=== PATIENT | male | born 1940 | race Caucasian/White ===

== ENCOUNTER 2017-01-24 11:48 | Day surgery (SDC) | payer MEDICARE ==
[2017-01-22 15:14] LABS: HEMOGLOBIN 14.6 g/dL (13.7-18.0)
[2017-01-22 15:26] LABS: BLOOD UREA NITROGEN 13 mg/dL (7-18)
[~2017-01-24] VITALS: Ht 180.3 cm; Wt 80.0 kg
[~2017-01-24 11:48] MED LIST: AMLODIPINE; ATOR80TA75 PO; CLOPIDOGREL; DOCU-30 PO; LEVO112T4 PO; LISINOPRIL PO; TAMSULOSIN
[2017-01-24] MEDS ORDERED: D5%-0.45% NACL 1,000 ML IV SCH (12:30)
[2017-01-24 12:32] VITALS: BP 150/77
[2017-01-24] MEDS ORDERED: LISI-170 PO (12:39)
[2017-01-24] MEDS ORDERED: SULF1TAB24 PO (12:39)
[2017-01-24] MEDS ORDERED: CLOP75TA PO (12:39)
[2017-01-24] MEDS ORDERED: TAMS0.4C2 PO (12:39)
[2017-01-24] MEDS ORDERED: AMLO5TAB2 PO (12:39)
[2017-01-24] MEDS ORDERED: SODIUM BICARBONATE 8.4% 154 MEQ in DEXTROSE 5% 846 ML IV SCH (13:30)
[2017-01-24] MEDS ORDERED: MIDAZOLAM 1 MG/ML, 5ML ONE (13:44)
[2017-01-24] MEDS ORDERED: FENTANYL PF 100 MCG/2ML ONE (13:44)
[2017-01-24] MEDS ORDERED: PROTAMINE SULFATE 10 MG/ML, 25ML ONE (13:44)
[2017-01-24] MEDS ORDERED: NALOXONE 1 MG/ML, 2ML ONE (13:45)
[2017-01-24] MEDS ORDERED: HEPARIN 1,000 UNITS/ML, 10ML ONE (13:45)
[2017-01-24] MEDS ORDERED: LIDOCAINE 2%, 20ML ONE (13:56)
[2017-01-24] MEDS ORDERED: hydrALAzine 20 MG/ML, 1ML ONE (14:29)
[2017-01-24] MEDS ORDERED: VISIPAQUE 270 MG/ML, 150ML BOTTLE ONE (15:56)
[2017-01-24] MEDS ORDERED: VISIPAQUE 270 MG/ML, 50ML BOTTLE ONE (15:56)
[2017-01-24] MEDS ORDERED: CLOPIDOGREL 75 MG TABLET ONE (16:42)
[2017-01-24] MEDS ORDERED: CLOPIDOGREL 75 MG TABLET PO ONE (17:00)
== END 2017-01-24 19:55 | disposition home or self-care (01) ==
LOC: OUT 11:48
PROVIDERS: ATTEND Surgery Vascular Surgery
DX: I70.223 Atherosclerosis of native arteries of extremities with rest pain, bilateral legs (principal); I11.9 Hypertensive heart disease without heart failure; E78.5 Hyperlipidemia, unspecified; Z85.850 Personal history of malignant neoplasm of thyroid; E89.0 Postprocedural hypothyroidism; Z98.52 Vasectomy status; Z80.0 Family history of malignant neoplasm of digestive organs
CPT/HCPCS: 36415; 37225; 75625; 75716; 80048; 85025; C1714; C1725; C1751; C1760; C1769; C1884; C1894; C2623; J0360; J1644; J2250; J2310; J2720; J3010; J3490; Q9966; 75630; 76937; 99156; 99157

== ENCOUNTER 2017-06-04 07:07 | Inpatient (IN) | payer MEDICARE ==
[2017-06-03 13:18] LABS: HEMATOCRIT 44.8 % (39.2-51.8); HEMOGLOBIN 14.7 g/dL (13.7-18.0); WHITE BLOOD COUNT 7.6 x10^3/uL (3.4-10)
[2017-06-03 13:38] LABS: ASPARTATE AMINO TRANSFERASE 31 U/L (15-37); BLOOD UREA NITROGEN 14 mg/dL (7-18)
[~2017-06-04] VITALS: Ht 180.3 cm; Wt 98.2 kg
[~2017-06-04 07:07] MED LIST changes: +AMLO5TAB2 PO; +ASPI-496 PO; +ATOR-2 PO; -ATOR80TA75 PO; +CLOP75TA PO; +DOCU-131 PO; -DOCU-30 PO; +LISI-170 PO; +SULF1TAB24 PO; +TAMS0.4C2 PO
[2017-06-04] MEDS ORDERED: LACTATED RINGERS 1,000 ML IV SCH (08:01)
[2017-06-04 08:03] VITALS: BP 132/67
[2017-06-04] MEDS ORDERED: MAGNESIUM CITRATE 300ML ORAL SOL PO ONE (09:00)
[2017-06-04] MEDS: D5%-0.45% NACL 1,000 ML IV SCH (11:30)
[2017-06-04] MEDS ORDERED: ONDANSETRON 2MG/ML, 2ML IV PRN (11:30)
[2017-06-04] MEDS ORDERED: ZOLPIDEM 5MG TABLET PO PRN (11:30)
[2017-06-04 14:30] VITALS: BP 145/69
[2017-06-04 19:37] VITALS: BP 143/73
[2017-06-04] MEDS: SODIUM CHLORIDE FLUSH 3ML SYRINGE IVF SCH (20:02)
[2017-06-04] MEDS ORDERED: ERYTHROMYCIN BASE 250 MG TABLET PO SCH (21:00)
[2017-06-04] MEDS ORDERED: metroNIDAZOLE 500 MG TABLET PO SCH (21:00)
[2017-06-05] MEDS: D5%-0.45% NACL 1,000 ML IV SCH ×3 (00:04→16:00)
[2017-06-05 01:33] VITALS: BP 148/74
[2017-06-05] MEDS: LISINOPRIL 20 MG TABLET PO SCH (06:28)
[2017-06-05] MEDS: LEVOTHYROXINE 112 MCG TABLET PO SCH (06:28)
[2017-06-05] MEDS: ATENOLOL 25 MG TABLET PO SCH (06:28)
[2017-06-05 06:29] VITALS: BP 147/82
[2017-06-05] MEDS ORDERED: FENTANYL PF 250 MCG/5ML ONE ×2 (07:37→10:56)
[2017-06-05] MEDS ORDERED: MIDAZOLAM 1 MG/ML, 2ML ONE (07:37)
[2017-06-05] MEDS ORDERED: BUPIVACAINE/PF-EPI 0.5% 1:200K ONE (08:07)
[2017-06-05] MEDS ORDERED: SUCCINYLCHOLINE 20 MG/ML, 10ML ONE (08:21)
[2017-06-05] MEDS ORDERED: PROPOFOL 10 MG/ML, 20ML ONE (08:21)
[2017-06-05] MEDS ORDERED: DEXAMETHASONE 4 MG/ML, 1ML ONE (08:21)
[2017-06-05] MEDS ORDERED: ROCURONIUM 10 MG/ML ONE (08:21)
[2017-06-05] MEDS ORDERED: CEFOTETAN 2 GM ONE (08:21)
[2017-06-05] MEDS ORDERED: ONDANSETRON 2MG/ML, 2ML ONE (08:21)
[2017-06-05] MEDS: TAMSULOSIN 0.4 MG CAP.ER.24H PO SCH (09:00)
[2017-06-05] MEDS: SODIUM CHLORIDE FLUSH 3ML SYRINGE IVF SCH ×2 (09:00→20:19)
[2017-06-05] MEDS ORDERED: ONDANSETRON 2MG/ML, 2ML IVPush PRN (12:30)
[2017-06-05] MEDS ORDERED: OXYcodone 5 MG/5 ML ORAL.SOL UDC PO PRN (12:30)
[2017-06-05] MEDS ORDERED: FENTANYL PF 100 MCG/2ML ONE (12:58)
[2017-06-05] MEDS ORDERED: HYDROmorphone 1 MG/ML, 1ML ONE (12:58)
[2017-06-05] MEDS: HYDROmorphone 1 MG/ML, 1ML IV PRN ×6 (12:59→13:50)
[2017-06-05] MEDS: FENTANYL PF 100 MCG/2ML IV PRN ×2 (13:02→13:10)
[2017-06-05] MEDS ORDERED: HYDROmorphone 2 MG/ML, 1ML ONE (13:08)
[2017-06-05] MEDS ORDERED: MEPERIDINE/PF 25MG/0.5ML ONE (13:28)
[2017-06-05] MEDS: MEPERIDINE/PF 25MG/0.5ML IVPush PRN ×2 (13:36→13:45)
[2017-06-05] MEDS ORDERED: ACETAMINOPHEN 325 MG TABLET PO PRN (16:00)
[2017-06-05] MEDS ORDERED: KETOROLAC 30 MG/1 ML IV PRN (16:00)
[2017-06-05] MEDS ORDERED: OXYcodone/APAP 5/325MG TABLET PO PRN (16:00)
[2017-06-05] MEDS ORDERED: ACETAMINOPHEN 650 MG SUPP PR PRN (16:00)
[2017-06-05] MEDS ORDERED: morphine SULFATE 10 MG/ML, 1ML IV PRN (16:00)
[2017-06-05] MEDS ORDERED: LORazepam 2 MG/ML, 1ML IV PRN (16:30)
[2017-06-05] MEDS ORDERED: LORazepam 1MG TABLET PO PRN (16:30)
[2017-06-05 16:35] VITALS: BP 129/73
[2017-06-05] MEDS: POTASSIUM CHLORIDE 20 MEQ in LACTATED RINGERS 1,000 ML IV SCH (18:20)
[2017-06-05 19:01] VITALS: BP 130/74
[2017-06-05] MEDS: HEPARIN 5,000 UNITS/ML, 1ML SQ SCH (20:07)
[2017-06-05 23:22] VITALS: BP 143/70
[2017-06-06] MEDS: POTASSIUM CHLORIDE 20 MEQ in LACTATED RINGERS 1,000 ML IV SCH (02:26)
[2017-06-06 02:57] VITALS: BP 136/72
[2017-06-06] MEDS: HEPARIN 5,000 UNITS/ML, 1ML SQ SCH ×3 (04:53→19:41)
[2017-06-06] MEDS: LEVOTHYROXINE 112 MCG TABLET PO SCH (05:03)
[2017-06-06] MEDS: ATENOLOL 25 MG TABLET PO SCH (05:03)
[2017-06-06] MEDS ORDERED: D5%-0.45NACL+KCL 20MEQ 1,000 ML IV SCH (06:00)
[2017-06-06 07:06] VITALS: BP 116/72
[2017-06-06] MEDS: D5%-0.45% NACL 1,000 ML IV SCH ×3 (08:00→16:00)
[2017-06-06] MEDS: TAMSULOSIN 0.4 MG CAP.ER.24H PO SCH (08:54)
[2017-06-06] MEDS: LISINOPRIL 20 MG TABLET PO SCH (08:54)
[2017-06-06] MEDS: SODIUM CHLORIDE FLUSH 3ML SYRINGE IVF SCH ×2 (09:00→19:41)
[2017-06-06 11:03] LABS: HEMOGLOBIN 13.1 g/dL (13.7-18.0); WHITE BLOOD COUNT 13.2 x10^3/uL (3.4-10)
[2017-06-06 11:05] LABS: BLOOD UREA NITROGEN 16 mg/dL (7-18)
[2017-06-06 14:38] VITALS: BP 129/62
[2017-06-06 18:58] VITALS: BP 139/89
[2017-06-07 02:15] VITALS: BP 130/64
[2017-06-07] MEDS: D5%-0.45% NACL 1,000 ML IV SCH ×3 (02:20→16:00)
[2017-06-07] MEDS: HEPARIN 5,000 UNITS/ML, 1ML SQ SCH ×3 (04:52→20:48)
[2017-06-07 04:53] VITALS: BP 117/62
[2017-06-07] MEDS: ATENOLOL 25 MG TABLET PO SCH (04:58)
[2017-06-07] MEDS: LEVOTHYROXINE 112 MCG TABLET PO SCH (04:58)
[2017-06-07 06:56] VITALS: BP 111/66
[2017-06-07] MEDS: LISINOPRIL 20 MG TABLET PO SCH (08:04)
[2017-06-07] MEDS: TAMSULOSIN 0.4 MG CAP.ER.24H PO SCH (08:04)
[2017-06-07] MEDS: SODIUM CHLORIDE FLUSH 3ML SYRINGE IVF SCH ×2 (08:04→20:52)
[2017-06-07 09:16] LABS: HEMATOCRIT 35.7 % (39.2-51.8); HEMOGLOBIN 11.8 g/dL (13.7-18.0); WHITE BLOOD COUNT 11.6 x10^3/uL (3.4-10)
[2017-06-07 09:27] LABS: BLOOD UREA NITROGEN 17 mg/dL (7-18)
[2017-06-07] MEDS: OXYcodone/APAP 7.5/325MG TABLET PO PRN ×3 (12:41→20:48)
[2017-06-07] MEDS: CEFOTETAN PMX 1GM/50ML 50 ML IV SCH (12:41)
[2017-06-07 13:36] VITALS: BP 112/61
[2017-06-07 19:05] VITALS: BP 126/76
[2017-06-08 00:06] VITALS: BP 106/59
[2017-06-08] MEDS: CEFOTETAN PMX 1GM/50ML 50 ML IV SCH ×2 (00:11→12:30)
[2017-06-08] MEDS: D5%-0.45% NACL 1,000 ML IV SCH ×3 (00:12→17:51)
[2017-06-08] MEDS: HEPARIN 5,000 UNITS/ML, 1ML SQ SCH ×3 (04:55→23:11)
[2017-06-08 04:59] VITALS: BP 126/65
[2017-06-08] MEDS: ATENOLOL 25 MG TABLET PO SCH (05:01)
[2017-06-08] MEDS: LEVOTHYROXINE 112 MCG TABLET PO SCH (05:01)
[2017-06-08] MEDS: OXYcodone/APAP 7.5/325MG TABLET PO PRN ×2 (05:54→13:57)
[2017-06-08 06:47] VITALS: BP 121/58
[2017-06-08] MEDS: TAMSULOSIN 0.4 MG CAP.ER.24H PO SCH (08:11)
[2017-06-08] MEDS: LISINOPRIL 20 MG TABLET PO SCH (08:11)
[2017-06-08] MEDS: SODIUM CHLORIDE FLUSH 3ML SYRINGE IVF SCH ×2 (08:12→20:24)
[2017-06-08 09:26] LABS: HEMATOCRIT 37.5 % (39.2-51.8); HEMOGLOBIN 12.5 g/dL (13.7-18.0); WHITE BLOOD COUNT 13.2 x10^3/uL (3.4-10)
[2017-06-08 09:35] LABS: BLOOD UREA NITROGEN 12 mg/dL (7-18)
[2017-06-08 12:43] VITALS: BP 108/63
[2017-06-08] MEDS: PIPERACILLIN/TAZO/PMX 3.375GM 50 ML IV SCH ×2 (14:00→20:22)
[2017-06-08 19:00] VITALS: BP 114/63
[2017-06-09 00:36] VITALS: BP 123/69
[2017-06-09] MEDS: D5%-0.45% NACL 1,000 ML IV SCH ×3 (02:18→15:09)
[2017-06-09] MEDS: PIPERACILLIN/TAZO/PMX 3.375GM 50 ML IV SCH ×4 (02:18→20:36)
[2017-06-09] MEDS: HEPARIN 5,000 UNITS/ML, 1ML SQ SCH ×3 (07:00→23:36)
[2017-06-09] MEDS: SODIUM CHLORIDE FLUSH 3ML SYRINGE IVF SCH ×2 (09:00→21:07)
[2017-06-09 09:28] VITALS: BP 108/52
[2017-06-09] MEDS: LEVOTHYROXINE 112 MCG TABLET PO SCH (09:30)
[2017-06-09] MEDS: LISINOPRIL 20 MG TABLET PO SCH (09:30)
[2017-06-09] MEDS: ATENOLOL 25 MG TABLET PO SCH (09:30)
[2017-06-09] MEDS: TAMSULOSIN 0.4 MG CAP.ER.24H PO SCH (09:30)
[2017-06-09] MEDS ORDERED: DOCUSATE 100 MG CAPSULE PO PRN ×2 (13:00→16:00)
[2017-06-09] MEDS ORDERED: BISACODYL 10 MG SUPP PR PRN (13:00)
[2017-06-09 13:28] VITALS: BP 130/70
[2017-06-09] MEDS ORDERED: ACETAMINOPHEN 650 MG SUPP PR PRN (16:00)
[2017-06-09] MEDS ORDERED: ACETAMINOPHEN 325 MG TABLET PO PRN (16:00)
[2017-06-09] MEDS ORDERED: ZOLPIDEM 5MG TABLET PO PRN (16:00)
[2017-06-09] MEDS ORDERED: ONDANSETRON 2MG/ML, 2ML IV PRN (16:00)
[2017-06-09] MEDS ORDERED: LORazepam 2 MG/ML, 1ML IV PRN (16:00)
[2017-06-09] MEDS: OXYcodone/APAP 7.5/325MG TABLET PO PRN (18:33)
[2017-06-09 19:51] VITALS: BP 77/46
[2017-06-09] MEDS ORDERED: SODIUM CHLORIDE 0.9% 500 ML IV ONE (20:30)
[2017-06-10] VITALS (7 sets, daily range): BP systolic 92–129; BP diastolic 36–72
[2017-06-10] MEDS: PIPERACILLIN/TAZO/PMX 3.375GM 50 ML IV SCH ×2 (02:17→08:18)
[2017-06-10] MEDS: D5%-0.45% NACL 1,000 ML IV SCH ×2 (02:19→12:54)
[2017-06-10 05:29] LABS: HEMATOCRIT 26.4 % (39.2-51.8); HEMOGLOBIN 8.8 g/dL (13.7-18.0)
[2017-06-10] MEDS: LEVOTHYROXINE 112 MCG TABLET PO SCH (06:19)
[2017-06-10] MEDS: HEPARIN 5,000 UNITS/ML, 1ML SQ SCH (07:00)
[2017-06-10] MEDS ORDERED: SODIUM CHLORIDE 0.9%, 500ML IVBOLUS ONE (07:00)
[2017-06-10] MEDS: ATENOLOL 25 MG TABLET PO SCH (08:00)
[2017-06-10] MEDS: TAMSULOSIN 0.4 MG CAP.ER.24H PO SCH (08:17)
[2017-06-10] MEDS: SODIUM CHLORIDE FLUSH 3ML SYRINGE IVF SCH (09:00)
[2017-06-10] MEDS: LISINOPRIL 20 MG TABLET PO SCH (09:00)
[2017-06-10] MEDS ORDERED: OMNIPAQUE 350 MG/ML, 100ML BOTTLE ONE (09:09)
[2017-06-10] MEDS ORDERED: SODIUM CHLORIDE 0.9% 500 ML IV ONE (10:30)
[2017-06-10 11:25] LABS: HEMOGLOBIN 8.1 g/dL (13.7-18.0)
[2017-06-10] MEDS ORDERED: ALBUTEROL/IPRATROPIUM 2.5MG/0.5MG, 3 ML ONE (12:40)
[2017-06-10] MEDS: MEROPENEM 1 GM in SODIUM CHLORIDE 0.9% 100 ML IV SCH (12:53)
[2017-06-10] MEDS: LINEZOLID PMX 600MG/300ML 300 ML IV SCH (14:00)
[2017-06-10] MEDS ORDERED: LIDOCAINE 1%, 20ML ONE (14:57)
[2017-06-10] MEDS ORDERED: MIDAZOLAM 1 MG/ML, 5ML ONE (15:25)
[2017-06-10] MEDS ORDERED: NALOXONE 1 MG/ML, 2ML ONE (15:26)
[2017-06-10] MEDS ORDERED: FLUMAZENIL 0.1 MG/1 ML, 5ML ONE (15:26)
[2017-06-10] MEDS ORDERED: FENTANYL PF 100 MCG/2ML ONE (15:26)
[2017-06-10 17:35] LABS: HEMATOCRIT 24.2 % (39.2-51.8); HEMOGLOBIN 8.2 g/dL (13.7-18.0)
[2017-06-10] MEDS: ALBUTEROL/IPRATROPIUM 2.5MG/0.5MG, 3 ML NPPB SCH (20:05)
[2017-06-10 22:19] LABS: HEMATOCRIT 27.6 % (39.2-51.8); HEMOGLOBIN 9.2 g/dL (13.7-18.0)
[2017-06-11] VITALS (9 sets, daily range): BP systolic 114–153; BP diastolic 52–76
[2017-06-11] MEDS: MEROPENEM 1 GM in SODIUM CHLORIDE 0.9% 100 ML IV SCH ×3 (01:56→17:44)
[2017-06-11] MEDS: METOCLOPRAMIDE 5 MG/ML, 2ML IVPush SCH ×4 (01:57→20:51)
[2017-06-11] MEDS: D5%-0.45% NACL 1,000 ML IV SCH ×3 (01:57→11:30)
[2017-06-11] MEDS: SODIUM CHLORIDE FLUSH 3ML SYRINGE IVF SCH ×3 (01:57→21:29)
[2017-06-11] MEDS: LINEZOLID PMX 600MG/300ML 300 ML IV SCH ×2 (02:58→14:22)
[2017-06-11 04:43] LABS: HEMATOCRIT 23.2 % (39.2-51.8); HEMOGLOBIN 7.8 g/dL (13.7-18.0)
[2017-06-11] MEDS: LEVOTHYROXINE 112 MCG TABLET PO SCH (05:28)
[2017-06-11] MEDS: ALBUTEROL/IPRATROPIUM 2.5MG/0.5MG, 3 ML NPPB SCH ×4 (07:00→19:49)
[2017-06-11] MEDS: ATENOLOL 25 MG TABLET PO SCH (08:58)
[2017-06-11] MEDS: TAMSULOSIN 0.4 MG CAP.ER.24H PO SCH (08:58)
[2017-06-11] MEDS: LISINOPRIL 20 MG TABLET PO SCH (08:58)
[2017-06-11 09:58] LABS: HEMATOCRIT 23.2 % (39.2-51.8); HEMOGLOBIN 7.7 g/dL (13.7-18.0); WHITE BLOOD COUNT 13.1 x10^3/uL (3.4-10)
[2017-06-11 10:08] LABS: BLOOD UREA NITROGEN 14 mg/dL (7-18)
[2017-06-11 16:04] LABS: HEMOGLOBIN 8.2 g/dL (13.7-18.0)
[2017-06-11] MEDS: OXYcodone/APAP 7.5/325MG TABLET PO PRN ×2 (17:42→21:29)
[2017-06-12 00:46] VITALS: BP 145/77
[2017-06-12 01:07] LABS: HEMATOCRIT 30.3 % (39.2-51.8); HEMOGLOBIN 9.9 g/dL (13.7-18.0)
[2017-06-12] MEDS: LINEZOLID PMX 600MG/300ML 300 ML IV SCH ×2 (01:18→13:40)
[2017-06-12] MEDS: OXYcodone/APAP 7.5/325MG TABLET PO PRN ×3 (01:57→12:37)
[2017-06-12] MEDS: D5%-0.45% NACL 1,000 ML IV SCH (01:57)
[2017-06-12] MEDS: METOCLOPRAMIDE 5 MG/ML, 2ML IVPush SCH ×4 (03:52→23:30)
[2017-06-12] MEDS: MEROPENEM 1 GM in SODIUM CHLORIDE 0.9% 100 ML IV SCH ×3 (03:52→20:22)
[2017-06-12 05:00] LABS: HEMATOCRIT 31.6 % (39.2-51.8); HEMOGLOBIN 10.5 g/dL (13.7-18.0)
[2017-06-12 05:10] LABS: ASPARTATE AMINO TRANSFERASE 71 U/L (15-37); BLOOD UREA NITROGEN 12 mg/dL (7-18)
[2017-06-12] MEDS: ALBUTEROL/IPRATROPIUM 2.5MG/0.5MG, 3 ML NPPB SCH (07:00)
[2017-06-12 07:11] VITALS: BP 159/74
[2017-06-12] MEDS: LEVOTHYROXINE 112 MCG TABLET PO SCH (07:14)
[2017-06-12] MEDS: ATENOLOL 25 MG TABLET PO SCH (07:14)
[2017-06-12] MEDS: SODIUM CHLORIDE FLUSH 3ML SYRINGE IVF SCH ×2 (08:48→20:22)
[2017-06-12] MEDS: LISINOPRIL 20 MG TABLET PO SCH (08:50)
[2017-06-12] MEDS: TAMSULOSIN 0.4 MG CAP.ER.24H PO SCH (08:50)
[2017-06-12] MEDS ORDERED: ALBUTEROL/IPRATROPIUM 2.5MG/0.5MG, 3 ML NPPB PRN (09:00)
[2017-06-12 10:09] LABS: HEMATOCRIT 31.7 % (39.2-51.8); HEMOGLOBIN 10.6 g/dL (13.7-18.0); WHITE BLOOD COUNT 11.9 x10^3/uL (3.4-10)
[2017-06-12 10:21] LABS: BLOOD UREA NITROGEN 12 mg/dL (7-18)
[2017-06-12] MEDS: BISACODYL 10 MG SUPP PR PRN (10:58)
[2017-06-12] MEDS ORDERED: POTASSIUM CHLORIDE 40 MEQ in D5%-0.45% NACL 1,000 ML IV SCH (11:30)
[2017-06-12] MEDS ORDERED: ENOXAPARIN 30 MG/0.3 ML SQ SCH (12:00)
[2017-06-12 13:28] VITALS: BP 144/70
[2017-06-12 15:47] LABS: HEMATOCRIT 29.4 % (39.2-51.8); HEMOGLOBIN 9.9 g/dL (13.7-18.0)
[2017-06-12] MEDS: POTASSIUM CHLORIDE 40 MEQ in D5%-0.45% NACL 1,000 ML IV SCH (17:39)
[2017-06-12 19:54] VITALS: BP 166/79
[2017-06-12 22:39] LABS: HEMATOCRIT 31.1 % (39.2-51.8); HEMOGLOBIN 10.4 g/dL (13.7-18.0)
[2017-06-13 01:05] VITALS: BP 159/73
[2017-06-13] MEDS: LINEZOLID PMX 600MG/300ML 300 ML IV SCH ×2 (02:01→16:50)
[2017-06-13] MEDS: POTASSIUM CHLORIDE 40 MEQ in D5%-0.45% NACL 1,000 ML IV SCH (02:42)
[2017-06-13] MEDS: MEROPENEM 1 GM in SODIUM CHLORIDE 0.9% 100 ML IV SCH ×2 (04:15→22:18)
[2017-06-13 04:24] LABS: HEMATOCRIT 29.7 % (39.2-51.8); HEMOGLOBIN 9.9 g/dL (13.7-18.0)
[2017-06-13] MEDS: LEVOTHYROXINE 112 MCG TABLET PO SCH (05:14)
[2017-06-13] MEDS: ATENOLOL 25 MG TABLET PO SCH (05:14)
[2017-06-13] MEDS: BISACODYL 10 MG SUPP PR PRN (05:14)
[2017-06-13] MEDS: METOCLOPRAMIDE 5 MG/ML, 2ML IVPush SCH ×3 (05:33→18:29)
[2017-06-13 07:00] VITALS: BP 138/64
[2017-06-13] MEDS ORDERED: POTASSIUM PHOSPHATE 22 MEQ in SODIUM CHLORIDE 0.9% 500 ML IV ONE (08:30)
[2017-06-13] MEDS: SODIUM CHLORIDE FLUSH 3ML SYRINGE IVF SCH ×2 (09:14→21:00)
[2017-06-13] MEDS: TAMSULOSIN 0.4 MG CAP.ER.24H PO SCH (09:14)
[2017-06-13] MEDS: LISINOPRIL 20 MG TABLET PO SCH (09:14)
[2017-06-13 09:33] LABS: HEMATOCRIT 29.6 % (39.2-51.8); HEMOGLOBIN 9.8 g/dL (13.7-18.0); WHITE BLOOD COUNT 10.3 x10^3/uL (3.4-10)
[2017-06-13 09:45] LABS: BLOOD UREA NITROGEN 13 mg/dL (7-18)
[2017-06-13] MEDS: FLUCONAZOLE 400 MG/200 ML 200 ML IV SCH (10:25)
[2017-06-13] MEDS ORDERED: BUPIVACAINE/PF-EPI 0.5% 1:200K ONE (11:51)
[2017-06-13] MEDS ORDERED: FENTANYL PF 250 MCG/5ML ONE (11:53)
[2017-06-13] MEDS ORDERED: MIDAZOLAM 1 MG/ML, 2ML ONE (11:53)
[2017-06-13] MEDS ORDERED: NEOSTIGMINE 1 MG/ML, 10ML ONE (12:16)
[2017-06-13] MEDS ORDERED: GLYCOPYRROLATE 0.2MG/1ML ONE (12:16)
[2017-06-13] MEDS ORDERED: ROCURONIUM 10 MG/ML ONE (12:16)
[2017-06-13] MEDS ORDERED: PROPOFOL 10 MG/ML, 20ML ONE (12:16)
[2017-06-13] MEDS ORDERED: OXYcodone 5 MG/5 ML ORAL.SOL UDC PO PRN (12:30)
[2017-06-13] MEDS ORDERED: PROMETHAZINE 25 MG/ML, 1ML IV PRN (12:30)
[2017-06-13] MEDS ORDERED: LABETALOL 5MG/ML, 20ML IV PRN (12:30)
[2017-06-13] MEDS ORDERED: ONDANSETRON 2MG/ML, 2ML IVPush PRN (12:30)
[2017-06-13] MEDS ORDERED: METOCLOPRAMIDE 5 MG/ML, 2ML IV PRN (12:30)
[2017-06-13] MEDS ORDERED: MEPERIDINE/PF 25MG/0.5ML IVPush PRN (12:30)
[2017-06-13] MEDS ORDERED: hydrALAzine 20 MG/ML, 1ML IV PRN (12:30)
[2017-06-13] MEDS ORDERED: FENTANYL PF 100 MCG/2ML IV PRN (12:30)
[2017-06-13] MEDS ORDERED: HYDROmorphone 2 MG/ML, 1ML ONE (14:36)
[2017-06-13] MEDS ORDERED: FENTANYL PF 100 MCG/2ML ONE (14:36)
[2017-06-13] MEDS: HYDROmorphone 1 MG/ML, 1ML IV PRN ×5 (14:40→15:20)
[2017-06-13 16:20] VITALS: BP 138/68
[2017-06-13 16:41] LABS: HEMATOCRIT 34.6 % (39.2-51.8); HEMOGLOBIN 11.6 g/dL (13.7-18.0)
[2017-06-13] MEDS: LACTATED RINGERS 500 ML IV SCH ×2 (18:35→19:58)
[2017-06-13] MEDS: D5%-0.45NACL+KCL 40MEQ 1,000 ML IV SCH (21:00)
[2017-06-13 21:29] VITALS: BP 113/56
[2017-06-13 22:09] LABS: HEMATOCRIT 38.4 % (39.2-51.8); HEMOGLOBIN 12.4 g/dL (13.7-18.0)
[2017-06-14 00:30] VITALS: BP 108/59
[2017-06-14] MEDS: METOCLOPRAMIDE 5 MG/ML, 2ML IVPush SCH ×4 (00:39→18:37)
[2017-06-14] MEDS: D5%-0.45NACL+KCL 40MEQ 1,000 ML IV SCH ×3 (05:00→18:37)
[2017-06-14 05:15] LABS: HEMATOCRIT 34.4 % (39.2-51.8); HEMOGLOBIN 11.4 g/dL (13.7-18.0); WHITE BLOOD COUNT 15.3 x10^3/uL (3.4-10)
[2017-06-14 05:20] LABS: BLOOD UREA NITROGEN 23 mg/dL (7-18)
[2017-06-14] MEDS: LINEZOLID PMX 600MG/300ML 300 ML IV SCH ×2 (05:22→17:53)
[2017-06-14 05:24] LABS: ASPARTATE AMINO TRANSFERASE 99 U/L (15-37)
[2017-06-14] MEDS: ATENOLOL 25 MG TABLET PO SCH (05:58)
[2017-06-14] MEDS: LEVOTHYROXINE 112 MCG TABLET PO SCH (05:58)
[2017-06-14] MEDS: MEROPENEM 1 GM in SODIUM CHLORIDE 0.9% 100 ML IV SCH ×3 (07:34→22:23)
[2017-06-14] MEDS: OXYcodone/APAP 7.5/325MG TABLET PO PRN (07:34)
[2017-06-14] MEDS: SODIUM CHLORIDE FLUSH 3ML SYRINGE IVF SCH ×2 (07:35→21:00)
[2017-06-14 07:40] VITALS: BP 136/76
[2017-06-14 09:33] LABS: HEMATOCRIT 33.4 % (39.2-51.8); HEMOGLOBIN 11.1 g/dL (13.7-18.0); WHITE BLOOD COUNT 14.8 x10^3/uL (3.4-10)
[2017-06-14 09:45] LABS: BLOOD UREA NITROGEN 25 mg/dL (7-18)
[2017-06-14] MEDS: FLUCONAZOLE 400 MG/200 ML 200 ML IV SCH (10:44)
[2017-06-14] MEDS: LISINOPRIL 20 MG TABLET PO SCH (10:44)
[2017-06-14] MEDS: TAMSULOSIN 0.4 MG CAP.ER.24H PO SCH (10:44)
[2017-06-14] MEDS ORDERED: POTASSIUM PHOSPHATE 22 MEQ in SODIUM CHLORIDE 0.9% 500 ML IV ONE (12:00)
[2017-06-14 13:10] VITALS: BP 132/66
[2017-06-14 16:31] LABS: HEMATOCRIT 31.8 % (39.2-51.8); HEMOGLOBIN 10.7 g/dL (13.7-18.0)
[2017-06-14 19:54] VITALS: BP 144/76
[2017-06-14 22:49] LABS: HEMATOCRIT 30.6 % (39.2-51.8); HEMOGLOBIN 10.2 g/dL (13.7-18.0)
[2017-06-15] MEDS: METOCLOPRAMIDE 5 MG/ML, 2ML IVPush SCH ×4 (01:01→21:43)
[2017-06-15 03:17] VITALS: BP 137/67
[2017-06-15] MEDS: D5%-0.45NACL+KCL 40MEQ 1,000 ML IV SCH ×3 (03:42→18:30)
[2017-06-15] MEDS: LINEZOLID PMX 600MG/300ML 300 ML IV SCH ×2 (04:58→18:46)
[2017-06-15] MEDS: ATENOLOL 25 MG TABLET PO SCH (05:54)
[2017-06-15] MEDS: LEVOTHYROXINE 112 MCG TABLET PO SCH (05:55)
[2017-06-15 06:19] LABS: HEMATOCRIT 30.9 % (39.2-51.8); HEMOGLOBIN 10.3 g/dL (13.7-18.0); WHITE BLOOD COUNT 14.8 x10^3/uL (3.4-10)
[2017-06-15 06:27] VITALS: BP 148/80
[2017-06-15 06:30] LABS: BLOOD UREA NITROGEN 25 mg/dL (7-18)
[2017-06-15] MEDS: MEROPENEM 1 GM in SODIUM CHLORIDE 0.9% 100 ML IV SCH ×3 (07:20→21:44)
[2017-06-15] MEDS: LISINOPRIL 20 MG TABLET PO SCH (08:12)
[2017-06-15] MEDS: TAMSULOSIN 0.4 MG CAP.ER.24H PO SCH (08:12)
[2017-06-15] MEDS: SODIUM CHLORIDE FLUSH 3ML SYRINGE IVF SCH ×2 (09:00→21:00)
[2017-06-15] MEDS: FLUCONAZOLE 400 MG/200 ML 200 ML IV SCH (10:05)
[2017-06-15 10:15] LABS: HEMATOCRIT 32.9 % (39.2-51.8); WHITE BLOOD COUNT 15.8 x10^3/uL (3.4-10)
[2017-06-15] MEDS: OXYcodone/APAP 7.5/325MG TABLET PO PRN (11:11)
[2017-06-15 14:00] VITALS: BP 118/74
[2017-06-15] MEDS ORDERED: DOCUSATE 100 MG CAPSULE PO PRN (18:30)
[2017-06-15] MEDS ORDERED: ACETAMINOPHEN 650 MG SUPP PR PRN (18:30)
[2017-06-15] MEDS ORDERED: ALBUTEROL/IPRATROPIUM 2.5MG/0.5MG, 3 ML NPPB PRN (18:30)
[2017-06-15] MEDS ORDERED: LORazepam 1MG TABLET PO PRN (18:30)
[2017-06-15] MEDS ORDERED: LORazepam 2 MG/ML, 1ML IV PRN (18:30)
[2017-06-15 19:30] VITALS: BP 156/76
[2017-06-16 01:58] VITALS: BP 150/66
[2017-06-16] MEDS: D5%-0.45NACL+KCL 40MEQ 1,000 ML IV SCH ×2 (02:44→16:42)
[2017-06-16] MEDS: METOCLOPRAMIDE 5 MG/ML, 2ML IVPush SCH ×4 (03:46→21:05)
[2017-06-16] MEDS: OXYcodone/APAP 7.5/325MG TABLET PO PRN ×2 (05:20→14:27)
[2017-06-16] MEDS: LINEZOLID PMX 600MG/300ML 300 ML IV SCH ×2 (05:21→17:00)
[2017-06-16] MEDS: LEVOTHYROXINE 112 MCG TABLET PO SCH (05:21)
[2017-06-16] MEDS: ATENOLOL 25 MG TABLET PO SCH (05:21)
[2017-06-16 05:39] LABS: HEMATOCRIT 29.7 % (39.2-51.8); HEMOGLOBIN 9.7 g/dL (13.7-18.0); WHITE BLOOD COUNT 10.4 x10^3/uL (3.4-10)
[2017-06-16] MEDS: MEROPENEM 1 GM in SODIUM CHLORIDE 0.9% 100 ML IV SCH ×3 (08:26→23:41)
[2017-06-16] MEDS: TAMSULOSIN 0.4 MG CAP.ER.24H PO SCH (08:26)
[2017-06-16] MEDS: SODIUM CHLORIDE FLUSH 3ML SYRINGE IVF SCH ×2 (08:26→21:00)
[2017-06-16] MEDS: LISINOPRIL 20 MG TABLET PO SCH (08:26)
[2017-06-16 08:30] VITALS: BP 135/69
[2017-06-16 09:32] LABS: HEMATOCRIT 28.2 % (39.2-51.8); HEMOGLOBIN 9.3 g/dL (13.7-18.0); WHITE BLOOD COUNT 9.8 x10^3/uL (3.4-10)
[2017-06-16 09:46] LABS: BLOOD UREA NITROGEN 24 mg/dL (7-18)
[2017-06-16] MEDS: FLUCONAZOLE 400 MG/200 ML 200 ML IV SCH (09:56)
[2017-06-16] MEDS ORDERED: FILTER, DISP 1.2 MICRON FOR TPN/PVN IV PRN (11:30)
[2017-06-16 14:22] VITALS: BP 158/84
[2017-06-16] MEDS ORDERED: DEXTROSE 10% 500 ML IV PRN (17:00)
[2017-06-16] MEDS ORDERED: FAT EMULSIONS IV SCH ×2 (17:00)
[2017-06-16] MEDS ORDERED: AMINO ACID 10% IV SCH ×2 (17:00)
[2017-06-16] MEDS ORDERED: PVN PER PHARMACY MC SCH (17:00)
[2017-06-16] MEDS ORDERED: [UNRECOGNIZED DRUG - OTHER] IV SCH (17:00)
[2017-06-16] MEDS ORDERED: DEXTROSE 70% IV SCH ×2 (17:00)
[2017-06-16] MEDS ORDERED: DEXTROSE 50%, 50ML SYRINGE IVPush PRN (17:00)
[2017-06-16] MEDS ORDERED: PVN PER PHARMACY IV SCH (17:00)
[2017-06-16] MEDS ORDERED: [UNRECOGNIZED DRUG - OTHER] IV SCH (17:00)
[2017-06-16] MEDS ORDERED: FUROSEMIDE 20 MG/2 ML IV ONE (18:45)
[2017-06-16 18:58] VITALS: BP 161/72
[2017-06-16] MEDS: INSULIN REGULAR LOW DOSE Q6H X 48HRS SQ-INSULIN SCH (21:00)
[2017-06-17 00:47] VITALS: BP 163/84
[2017-06-17] MEDS: OXYcodone/APAP 7.5/325MG TABLET PO PRN ×2 (01:07→10:29)
[2017-06-17] MEDS: INSULIN REGULAR LOW DOSE Q6H X 48HRS SQ-INSULIN SCH ×4 (03:00→21:00)
[2017-06-17] MEDS: METOCLOPRAMIDE 5 MG/ML, 2ML IVPush SCH ×4 (03:02→20:58)
[2017-06-17 04:52] LABS: HEMATOCRIT 28.8 % (39.2-51.8); HEMOGLOBIN 9.6 g/dL (13.7-18.0); WHITE BLOOD COUNT 8.6 x10^3/uL (3.4-10)
[2017-06-17 05:06] LABS: BLOOD UREA NITROGEN 23 mg/dL (7-18)
[2017-06-17 05:13] LABS: ASPARTATE AMINO TRANSFERASE 302 U/L (15-37)
[2017-06-17] MEDS: ATENOLOL 25 MG TABLET PO SCH (05:15)
[2017-06-17] MEDS: LEVOTHYROXINE 112 MCG TABLET PO SCH (05:15)
[2017-06-17] MEDS: LINEZOLID PMX 600MG/300ML 300 ML IV SCH ×2 (05:15→17:04)
[2017-06-17 07:31] VITALS: BP 158/74
[2017-06-17 08:48] LABS: HEMATOCRIT 28.6 % (39.2-51.8); HEMOGLOBIN 9.5 g/dL (13.7-18.0); WHITE BLOOD COUNT 8.6 x10^3/uL (3.4-10)
[2017-06-17] MEDS: LISINOPRIL 20 MG TABLET PO SCH (08:53)
[2017-06-17] MEDS: MEROPENEM 1 GM in SODIUM CHLORIDE 0.9% 100 ML IV SCH ×3 (08:53→23:55)
[2017-06-17] MEDS: SODIUM CHLORIDE FLUSH 3ML SYRINGE IVF SCH ×2 (08:53→20:58)
[2017-06-17] MEDS: TAMSULOSIN 0.4 MG CAP.ER.24H PO SCH (08:53)
[2017-06-17 08:59] LABS: BLOOD UREA NITROGEN 23 mg/dL (7-18)
[2017-06-17] MEDS: FLUCONAZOLE 400 MG/200 ML 200 ML IV SCH (10:29)
[2017-06-17 14:58] VITALS: BP 153/74
[2017-06-17] MEDS ORDERED: FILTER, DISP 1.2 MICRON FOR TPN/PVN IV PRN (16:00)
[2017-06-17] MEDS ORDERED: FAT EMULSIONS IV SCH (17:00)
[2017-06-17] MEDS ORDERED: DEXTROSE 70% IV SCH (17:00)
[2017-06-17] MEDS ORDERED: AMINO ACID 10% IV SCH (17:00)
[2017-06-17] MEDS ORDERED: [UNRECOGNIZED DRUG - OTHER] IV SCH (17:00)
[2017-06-17 20:44] VITALS: BP 158/92
[2017-06-18] MEDS: OXYcodone/APAP 7.5/325MG TABLET PO PRN ×3 (00:26→22:17)
[2017-06-18 01:37] VITALS: BP 165/70
[2017-06-18] MEDS: LEVOTHYROXINE 112 MCG TABLET PO SCH (05:17)
[2017-06-18] MEDS: ATENOLOL 25 MG TABLET PO SCH (05:17)
[2017-06-18] MEDS: LINEZOLID PMX 600MG/300ML 300 ML IV SCH ×2 (05:17→17:00)
[2017-06-18 05:49] LABS: HEMATOCRIT 29.9 % (39.2-51.8); HEMOGLOBIN 10.1 g/dL (13.7-18.0); WHITE BLOOD COUNT 10.7 x10^3/uL (3.4-10)
[2017-06-18 05:58] LABS: BLOOD UREA NITROGEN 21 mg/dL (7-18)
[2017-06-18] MEDS: INSULIN REGULAR LOW DOSE Q6H X 48HRS SQ-INSULIN SCH ×3 (06:00→17:24)
[2017-06-18] MEDS: METOCLOPRAMIDE 5 MG/ML, 2ML IVPush SCH ×4 (06:00→23:48)
[2017-06-18 06:55] VITALS: BP 170/88
[2017-06-18] MEDS: MEROPENEM 1 GM in SODIUM CHLORIDE 0.9% 100 ML IV SCH ×3 (08:54→23:48)
[2017-06-18] MEDS: TAMSULOSIN 0.4 MG CAP.ER.24H PO SCH (08:54)
[2017-06-18] MEDS: LISINOPRIL 20 MG TABLET PO SCH (08:54)
[2017-06-18] MEDS: SODIUM CHLORIDE FLUSH 3ML SYRINGE IVF SCH ×2 (08:55→21:00)
[2017-06-18] MEDS: FLUCONAZOLE 400 MG/200 ML 200 ML IV SCH (10:58)
[2017-06-18 13:06] VITALS: BP 175/87
[2017-06-18] MEDS ORDERED: FILTER, DISP 1.2 MICRON FOR TPN/PVN IV PRN (16:00)
[2017-06-18] MEDS ORDERED: FAT EMULSIONS IV SCH (17:00)
[2017-06-18] MEDS ORDERED: DEXTROSE 70% IV SCH (17:00)
[2017-06-18] MEDS ORDERED: [UNRECOGNIZED DRUG - OTHER] IV SCH (17:00)
[2017-06-18] MEDS ORDERED: AMINO ACID 10% IV SCH (17:00)
[2017-06-18 19:13] VITALS: BP 150/82
[2017-06-18] MEDS ORDERED: INSULIN REGULAR LOW DOSE QDAY SQ-INSULIN SCH (21:00)
[2017-06-19] MEDS ORDERED: DEXTROSE 70% IV SCH ×2 (01:27→17:00)
[2017-06-19] MEDS ORDERED: AMINO ACID 10% IV SCH ×2 (01:27→17:00)
[2017-06-19] MEDS ORDERED: FAT EMULSIONS IV SCH ×2 (01:27→17:00)
[2017-06-19] MEDS ORDERED: [UNRECOGNIZED DRUG - OTHER] IV SCH (01:27)
[2017-06-19 02:15] VITALS: BP 143/79
[2017-06-19] MEDS: LEVOTHYROXINE 112 MCG TABLET PO SCH (05:20)
[2017-06-19] MEDS: METOCLOPRAMIDE 5 MG/ML, 2ML IVPush SCH ×2 (05:20→12:25)
[2017-06-19] MEDS: ATENOLOL 25 MG TABLET PO SCH (05:21)
[2017-06-19] MEDS: LINEZOLID PMX 600MG/300ML 300 ML IV SCH (05:24)
[2017-06-19 06:47] LABS: HEMATOCRIT 27.5 % (39.2-51.8); HEMOGLOBIN 9.3 g/dL (13.7-18.0); WHITE BLOOD COUNT 9.8 x10^3/uL (3.4-10)
[2017-06-19 07:24] VITALS: BP 147/73
[2017-06-19 08:13] LABS: BLOOD UREA NITROGEN 22 mg/dL (7-18)
[2017-06-19 08:16] LABS: ASPARTATE AMINO TRANSFERASE 126 U/L (15-37)
[2017-06-19] MEDS: TAMSULOSIN 0.4 MG CAP.ER.24H PO SCH (08:46)
[2017-06-19] MEDS: LISINOPRIL 20 MG TABLET PO SCH (08:46)
[2017-06-19] MEDS: MEROPENEM 1 GM in SODIUM CHLORIDE 0.9% 100 ML IV SCH ×2 (08:46→16:45)
[2017-06-19] MEDS: SODIUM CHLORIDE FLUSH 3ML SYRINGE IVF SCH (08:46)
[2017-06-19] MEDS: FLUCONAZOLE 400 MG/200 ML 200 ML IV SCH (10:00)
[2017-06-19 12:41] VITALS: BP_SYST 168; BP_SYST 175; BP_DIAS 76; BP_DIAS 93
[2017-06-19] MEDS ORDERED: TPN PER PHARMACY MC PRN (14:00)
[2017-06-19] MEDS ORDERED: ATEN25TA PO (15:29)
[2017-06-19] MEDS ORDERED: [UNRECOGNIZED DRUG - CODE] IVPB (15:32)
[2017-06-19] MEDS ORDERED: LINE600I9 IVPB (15:35)
[2017-06-19] MEDS ORDERED: MERO1VIA15 IVPB (15:41)
[2017-06-19] MEDS ORDERED: METO10TA2 PO (15:49)
[2017-06-19] MEDS ORDERED: SODI3VIA IVF (15:54)
[2017-06-19] MEDS ORDERED: INSU100V5 SQ-INSULIN (15:55)
[2017-06-19] MEDS ORDERED: 0.92DISP2 IVPush (16:04)
[2017-06-19] MEDS ORDERED: LORA1TAB PO (16:11)
[2017-06-19] MEDS ORDERED: OXYC1TAB8 PO (16:13)
[2017-06-19] MEDS ORDERED: CLON0.1T NG (16:15)
[2017-06-19] MEDS ORDERED: FILTER, DISP 1.2 MICRON FOR TPN/PVN IV PRN (17:00)
[2017-06-19] MEDS ORDERED: [UNRECOGNIZED DRUG - OTHER] IV SCH (17:00)
[2017-06-20] MEDS ORDERED: INSULIN REGULAR LOW DOSE QDAY SQ-INSULIN SCH (09:00)
== END 2017-06-19 17:27 | DRG 853 ==
LOC: ORIP 07:07 → EDSTATUS 09:00 → 4NOR 10:38
PROVIDERS: ADMIT Surgery
PROC: 0FT44ZZ Resection of Gallbladder, Percutaneous Endoscopic Approach (ICD-10-PCS; principal; 2017-06-05 08:15)
PROC: 0W9F30Z Drainage of Abdominal Wall with Drainage Device, Percutaneous Approach (ICD-10-PCS; 2017-06-10)
PROC: 0W9G30Z Drainage of Peritoneal Cavity with Drainage Device, Percutaneous Approach (ICD-10-PCS; 2017-06-10)
PROC: 30233N1 Transfusion of Nonautologous Red Blood Cells into Peripheral Vein, Percutaneous Approach (ICD-10-PCS; 2017-06-11)
PROC: 0DNW4ZZ Release Peritoneum, Percutaneous Endoscopic Approach (ICD-10-PCS; 2017-06-13)
PROC: 0DN84ZZ Release Small Intestine, Percutaneous Endoscopic Approach (ICD-10-PCS; 2017-06-13)
PROC: 0DBL4ZZ Excision of Transverse Colon, Percutaneous Endoscopic Approach (ICD-10-PCS; 2017-06-13)
PROC: 0D1L4Z4 Bypass Transverse Colon to Cutaneous, Percutaneous Endoscopic Approach (ICD-10-PCS; 2017-06-13)
PROC: 0DNS4ZZ (ICD-10-PCS; 2017-06-13 11:45)
PROC: 02HV33Z Insertion of Infusion Device into Superior Vena Cava, Percutaneous Approach (ICD-10-PCS; 2017-06-17)
PROC: B5181ZA Fluoroscopy of Superior Vena Cava using Low Osmolar Contrast, Guidance (ICD-10-PCS; 2017-06-17)
PROC: B548ZZA Ultrasonography of Superior Vena Cava, Guidance (ICD-10-PCS; 2017-06-17)
DX: A41.9 Sepsis, unspecified organism (principal); E43 Unspecified severe protein-calorie malnutrition; K63.1 Perforation of intestine (nontraumatic); J69.0 Pneumonitis due to inhalation of food and vomit; K65.1 Peritoneal abscess; G93.41 Metabolic encephalopathy; N17.9 Acute kidney failure, unspecified; S36.021A Major contusion of spleen, initial encounter; K56.7 Ileus, unspecified; D62 Acute posthemorrhagic anemia; S36.039A Unspecified laceration of spleen, initial encounter; K80.20 Calculus of gallbladder without cholecystitis without obstruction; Z43.3 Encounter for attention to colostomy; D69.6 Thrombocytopenia, unspecified; E03.9 Hypothyroidism, unspecified; E78.5 Hyperlipidemia, unspecified; E83.39 Other disorders of phosphorus metabolism; E86.1 Hypovolemia; I71.4 Abdominal aortic aneurysm, without rupture; K66.0 Peritoneal adhesions (postprocedural) (postinfection); N40.1 Benign prostatic hyperplasia with lower urinary tract symptoms; R74.0 Nonspecific elevation of levels of transaminase and lactic acid dehydrogenase [LDH]; I11.9 Hypertensive heart disease without heart failure; R13.10 Dysphagia, unspecified; R33.8 Other retention of urine; I95.9 Hypotension, unspecified; X58.XXXA Exposure to other specified factors, initial encounter; Z88.8 Allergy status to other drugs, medicaments and biological substances; Z68.30 Body mass index [BMI] 30.0-30.9, adult; Y93.89 Activity, other specified; Y92.89 Other specified places as the place of occurrence of the external cause; Y99.8 Other external cause status
CPT/HCPCS: 36415; 36569; 49405; 70450; 71010; 74177; 75989; 76700; 76937; 77001; 80048; 80053; 80076; 82040; 82140; 82607; 82746; 82962; 83735; 84100; 84134; 84443; 84478; 85014; 85018; 85025; 86850; 86900; 86923; 87015; 87040; 87070; 87075; 87077; 87106; 87116; 87147; 87186; 87205; 87206; 88304; 88307; 93005; 94640; 99156; 99157; C1729; J0610; J1100; J1170; J1450; J1644; J2020; J2175; J2185; J2250; J2270; J2405; J2543; J2704; J2710; J3010; J3475; J3480; J3490; J7620; Q9967; C1760; C1769; J0330; J1720; J1940; J2060; J2310; J2765; J3420; J7040; J7120; P9016; S0074